=== PATIENT | female | born 1970 | race Caucasian/White ===

== ENCOUNTER → 2017-08-10 | Outpatient (CLI) | payer OTHER | END | disposition home or self-care (01) | LOC: CFH 09:09 | PROVIDERS: ATTEND Specialist | DX: Z12.31 Encounter for screening mammogram for malignant neoplasm of breast (principal) | CPT/HCPCS: 77063; 77067 ==

== ENCOUNTER → 2017-12-19 | Outpatient (CLI) | payer OTHER ==
[~2017-12-19] MED LIST: ASCO100019 PO; CHOL500045 PO
[2017-12-19 10:32] LABS: INTERNATIONAL NORMALIZED RATIO 1.07 (0.93-1.1)
[2017-12-19 10:35] LABS: ALANINE AMINOTRANSFERASE 17 U/L (12-78); ALBUMIN 3.6 g/dL (3.4-5.0); ANION GAP 6 mmol/L (5-15); CALCIUM 8.8 mg/dL (8.5-10.1); CHLORIDE 106 mmol/L (98-107); CREATININE 0.65 mg/dL (0.55-1.02)
[2017-12-19 10:37] LABS: ALKALINE PHOSPHATASE 76 U/L (45-117); BASOPHILS # (AUTO) 0.02 x10^3/uL (0-0.1); BASOPHILS % (AUTO) 0 % (0-1); BILIRUBIN,TOTAL 0.6 mg/dL (0.2-1.0); EOSINOPHILS # (AUTO) 0.16 x10^3/uL (0-0.4); EOSINOPHILS % (AUTO) 2 % (1-7); LYMPHOCYTES # (AUTO) 1.55 x10^3/uL (1-3.4); LYMPHOCYTES % (AUTO) 21 % (22-44); MD NO; MEAN CORPUSCULAR HEMOGLOBIN 29.6 pg (27.0-34.8); MEAN CORPUSCULAR VOLUME 87.2 fL (80-100); MEAN PLATELET VOLUME 8.2 fL (7.4-10.4); MONOCYTES # (AUTO) 0.58 x10^3/uL (0.2-0.8); MONOCYTES % (AUTO) 8 % (2-9); NEUTROPHILS # (AUTO) 5.27 x10^3/uL (1.8-6.8); NEUTROPHILS % (AUTO) 70 % (42-75); PLATELET COUNT 255 x10^3/uL (130-400); RED BLOOD COUNT 4.88 x10^6/uL (3.82-5.3); RED CELL DISTRIBUTION WIDTH 13.2 % (9.6-15.2); TOTAL PROTEIN 8.2 g/dL (6.4-8.2)
== END | disposition home or self-care (01) ==
LOC: STAR 09:30
PROVIDERS: ATTEND Specialist
DX: Z01.818 Encounter for other preprocedural examination (principal); D25.9 Leiomyoma of uterus, unspecified
CPT/HCPCS: 36415; 71046; 80053; 85025; 85610; 85730; 93005

== ENCOUNTER 2018-01-08 05:39 | Day surgery (SDC) | payer OTHER ==
[~2018-01-08] VITALS: Ht 154.9 cm; Wt 62.1 kg
[2018-01-08] MEDS ORDERED: LACTATED RINGERS 1,000 ML IV SCH (06:14)
[2018-01-08 06:18] VITALS: BP 112/79
[2018-01-08] MEDS ORDERED: HEPARIN 1,000 UNITS/ML, 10ML ONE (07:04)
[2018-01-08] MEDS ORDERED: BUPIVACAINE 0.25% ONE (07:04)
[2018-01-08] MEDS: GABAPENTIN 300 MG CAPSULE PO STA ×2 (07:40→07:58)
[2018-01-08] MEDS ORDERED: ACETAMINOPHEN 500 MG TABLET PO STA (07:40)
[2018-01-08] MEDS ORDERED: OxyconTIN ER 20 MG TAB.ER PO STA (07:40)
[2018-01-08] MEDS ORDERED: SCOPOLAMINE PATCH, 1.5MG PATCH.TD72 TD STA (07:40)
[2018-01-08] MEDS ORDERED: ONDANSETRON ODT 8 MG PO STA (07:40)
[2018-01-08] MEDS ORDERED: GABAPENTIN 300 MG CAPSULE PO ONE (07:45)
[2018-01-08] MEDS ORDERED: MIDAZOLAM 1 MG/ML, 2ML ONE (07:51)
[2018-01-08] MEDS ORDERED: ROCURONIUM 10MG/ML,5ML ONE (07:53)
[2018-01-08] MEDS ORDERED: PHENYLEPHRINE 10 MG/ML ONE (07:53)
[2018-01-08] MEDS ORDERED: FENTANYL PF 250 MCG/5ML ONE (07:53)
[2018-01-08] MEDS ORDERED: PROPOFOL 10 MG/ML, 20ML ONE (07:54)
[2018-01-08] MEDS ORDERED: LIDOCAINE-MPF 2% ,5ML ONE (07:54)
[2018-01-08] MEDS ORDERED: DEXAMETHASONE 4 MG/ML, 1ML ONE ×2 (07:55)
[2018-01-08] MEDS ORDERED: CEFOTETAN 2 GM ONE (08:36)
[2018-01-08] MEDS ORDERED: LABETALOL 5MG/ML, 20ML IV PRN (10:00)
[2018-01-08] MEDS ORDERED: FENTANYL PF 100 MCG/2ML IV PRN (10:00)
[2018-01-08] MEDS ORDERED: HYDROmorphone 1 MG/ML, 1ML IV PRN (10:00)
[2018-01-08] MEDS ORDERED: OXYcodone 5 MG/5 ML ORAL.SOL UDC PO PRN (10:00)
[2018-01-08] MEDS ORDERED: HALOPERIDOL 5 MG/ML IV PRN (10:00)
[2018-01-08] MEDS ORDERED: hydrALAzine 20 MG/ML, 1ML IV PRN (10:00)
[2018-01-08] MEDS ORDERED: PROMETHAZINE 25 MG/ML, 1ML IV PRN (10:00)
[2018-01-08] MEDS ORDERED: KETOROLAC 30 MG/1 ML ONE (10:26)
[2018-01-08] MEDS ORDERED: MEPERIDINE/PF 50 MG/ML ONE (10:29)
[2018-01-08] MEDS: MEPERIDINE/PF 25MG/0.5ML IVPush PRN ×2 (10:30→10:35)
[2018-01-08] MEDS ORDERED: KETOROLAC 30 MG/1 ML IVPush ONE (10:30)
[2018-01-08] MEDS ORDERED: OXYcodone/APAP 7.5/325MG TABLET ONE (13:18)
[2018-01-08] MEDS ORDERED: OXYcodone/APAP 7.5/325MG TABLET PO PRN (13:30)
== END 2018-01-08 14:54 ==
LOC: OUT 05:39
PROVIDERS: ATTEND Specialist
DX: D25.9 Leiomyoma of uterus, unspecified (principal); Z98.890 Other specified postprocedural states; Z90.49 Acquired absence of other specified parts of digestive tract; Z72.89 Other problems related to lifestyle
CPT/HCPCS: 36415; 58571; 81025; 86850; 86900; 86923; 88305; 88307; 88331; J1100; J1885; J2175; J2250; J2370; J2704; J3010; J3490; J7120; Q0162; S2900; J1644; S0074

== ENCOUNTER → 2018-03-09 | Outpatient (CLI) | payer OTHER ==
[~2018-03-09] MED LIST changes: +OMNIPAQUE 350 MG/ML, 100ML BOTTLE ONE
== END | disposition home or self-care (01) ==
LOC: RAD 12:25
PROVIDERS: ATTEND Specialist
DX: N93.9 Abnormal uterine and vaginal bleeding, unspecified (principal); Z90.49 Acquired absence of other specified parts of digestive tract
CPT/HCPCS: 74177; Q9967

== ENCOUNTER → 2018-10-01 | Outpatient (CLI) | payer OTHER ==
[~2018-10-01] MED LIST changes: -OMNIPAQUE 350 MG/ML, 100ML BOTTLE ONE
== END | disposition home or self-care (01) ==
LOC: CFH 09:58
PROVIDERS: ATTEND Specialist
DX: Z12.31 Encounter for screening mammogram for malignant neoplasm of breast (principal)
CPT/HCPCS: 77063; 77067

== ENCOUNTER → 2019-12-31 | Outpatient (CLI) | payer OTHER | END | disposition home or self-care (01) | LOC: CFH 08:57 | PROVIDERS: ATTEND Specialist | DX: Z12.31 Encounter for screening mammogram for malignant neoplasm of breast (principal) | CPT/HCPCS: 77063; 77067 ==